=== PATIENT | male | born 1975 | race Caucasian/White ===

== ENCOUNTER 2018-08-07 13:00 | Emergency (ER) | payer SELFPAY ==
[~2018-08-07] VITALS: Ht 170.2 cm; Wt 65.9 kg
[~2018-08-07 13:00] MED LIST: MULTI VITAMINS1 TAB PO; NO HOME MEDICATIONS; NORCO 325 MG-51 TAB PO
[2018-08-07 13:15] VITALS: BP 150/92; TEMP 98
[2018-08-07] MEDS ORDERED: PREDNISONE20 MG PO (15:44)
[2018-08-07] MEDS ORDERED: NORCO 325 MG-51 TAB PO (15:44)
[2018-08-07] MEDS ORDERED: FLEXERIL 1010 MG/TAB PO (15:44)
[2018-08-07 15:55] VITALS: PULSE 84
== END 2018-08-07 15:55 | disposition home or self-care (01) ==
LOC: COL.ER 13:00
DX: S29.011A Strain of muscle and tendon of front wall of thorax, initial encounter (principal); M94.0 Chondrocostal junction syndrome [Tietze]; R09.1 Pleurisy; Z87.891 Personal history of nicotine dependence
CPT/HCPCS: J1885

== ENCOUNTER → 2018-09-16 | Outpatient (CLI) | payer BC ==
[~2018-09-16] MED LIST changes: +FLEXERIL 1010 MG/TAB PO; +PREDNISONE20 MG PO
== END ==
LOC: COL.PUL 08:01
DX: S22.32XD Fracture of one rib, left side, subsequent encounter for fracture with routine healing (principal); R06.02 Shortness of breath; Z87.891 Personal history of nicotine dependence
CPT/HCPCS: Q9967

== ENCOUNTER → 2019-10-25 | Outpatient (CLI) | payer BC | LOC: COL.RAD 09:22 | DX: R10.9 Unspecified abdominal pain (principal) ==

== ENCOUNTER → 2020-01-14 | Outpatient (CLI) | payer BC | LOC: COL.RAD 07:30 | DX: D18.09 Hemangioma of other sites (principal); K31.89 Other diseases of stomach and duodenum; Z90.49 Acquired absence of other specified parts of digestive tract; R60.0 Localized edema | CPT/HCPCS: Q9967 ==